=== PATIENT | female | born 1960 | race Caucasian/White ===

== ENCOUNTER → 2016-11-15 | Outpatient (CLI) | payer OTHER ==
--- NOTE | 2016-11-15 17:25 | DX ---
DEXA Bone Mineral Densitometry Clinical Indications: Postmenopausal, post oophorectomy, history of breast cancer, screening for ost eoporosis Comparison: 03/01/14 (normal) Technique: Bone Mineral Densitometry (BMD) by Dual Energy X-Ray Absorptiometry (DEXA) was performed utilizing the [employer] scanner. The lumbar spine was evaluated in the AP projection. The bilat eral hips and forearm were evaluated in the AP projection. Vertebral fracture assessment was also pe rformed. AP Lumbar Spine: The L1, L2, L3 and L4 vertebral bodies were evaluated. BMD: 1.179 gm/cm2 T-score: -0.1 SD Z-score: -0.3 SD Significantly increased by 4.4%, which is likely due to degenerative sclerosis. AP Left Hip: Neck BMD: 0.930 gm/cm2 T-score: -0.8 SD Z-score: -0.4 SD No significant change in total BMD AP Right Hip: Neck BMD: 0.928 gm/cm2 T-score: -0.8 SD Z-score: -0.4 SD Total BMD is significantly decreased by 3.8% AP Left Forearm, 10/22: BMD: 0.828 gm/cm2 T-score: -0.5 SD Z-score: -0.2 SD No significant change. Vertebral Fracture Assessment: No significant fracture deformity. Lumbar BMD is likely increase due to degenerative sclerosis. Conclusion: Considering the lowest measured site, the patient remains normal and at low risk for fra cture. The ten year FRAX risk for any major osteoporotic fracture is 5% and for a hip fracture is 0.2%. Any bone loss in this patient is probably related to aging or estrogen deficiency. To prevent osteoporosis and to promote the patient's bone density, the following recommendations shou ld be considered: 1. Pursue a regular regimen of weightbearing and muscle strengthening exercises in order to reduce t he risk of falls and fractures (as tolerated by the patient's general medical condition). 2. Ensure that daily dietary calcium uptake is maximized. 3. Consider checking the serum vitamin D level. Ensure that intake of vitamin D is 600 IU per day (fo r all ages through 70) . 4. Consider follow-up DEXA scan in two years to reassess the rate of bone loss in this patient.
== END ==
LOC: BRMIMAGING 13:09
PROVIDERS: ATTEND Internal Medicine Hematology & Oncology
DX: Z13.820 Encounter for screening for osteoporosis (principal); C50.919 Malignant neoplasm of unspecified site of unspecified female breast; Z78.0 Asymptomatic menopausal state; Z90.722 Acquired absence of ovaries, bilateral

== ENCOUNTER → 2016-12-03 | Outpatient (CLI) | payer OTHER | LOC: FIMAGING 09:24 | PROVIDERS: ATTEND Family Medicine | DX: R94.6 Abnormal results of thyroid function studies (principal) ==

== ENCOUNTER → 2016-12-16 | Outpatient (CLI) | payer OTHER ==
[~2016-12-16] MED LIST: LIDOCAINE 1% 30 ML SDV ONE; NA BICARBONATE 50 MEQ/50 ML VIAL ONE
== END ==
LOC: FIMAGING 12:08
PROVIDERS: ATTEND Family Medicine
PROC: 0GBH3ZX Excision of Right Thyroid Gland Lobe, Percutaneous Approach, Diagnostic (ICD-10-PCS; principal; 2016-12-16)
DX: C73 Malignant neoplasm of thyroid gland (principal)

== ENCOUNTER → 2018-09-25 | Outpatient (CLI) | payer OTHER | LOC: FIMAGING 11:52 | PROVIDERS: ATTEND Internal Medicine Hematology & Oncology | DX: R92.8 Other abnormal and inconclusive findings on diagnostic imaging of breast (principal); Z85.3 Personal history of malignant neoplasm of breast; Z90.13 Acquired absence of bilateral breasts and nipples ==